=== PATIENT | male | born 1975 | race American Indian/Alaskan Native ===

== ENCOUNTER 2018-11-30 08:09 | Emergency (ER) | payer BC ==
[2018-11-30 08:50] VITALS: BP 186/108
--- NOTE | 2018-11-30 10:02 | Emergency Department Report ---
ED Lower Extremity HPI - General Chief Complaint: Extremity Problem,Nontraumatic Stated Complaint: L LEG PAIN Time Seen by Provider: 11/30/18 09:47 Source: patient Mode of arrival: Ambulatory Limitations: No Limitations - History of Present Illness Initial Comments: Mr. Rogers is a 43-year-old male with history of diabetes who presents with pain at the left posterior knee radiating to the left calf. Gradual onset 1 week ago. No known injury. Pain is constant. Dull. Has not noticed any swelling. Denies chest pain. Denies shortness of breath. No previous history of leg clot. However he does have varicose veins. MD Complaint: other (left posterior knee, left posterior calf pain) -: Gradual, week(s) (1) Injury: Leg: Left, Knee: Left Type of Injury: other (none) Severity: mild Improves With: nothing Worsens With: nothing - Related Data Allergies Allergy/AdvReac Type Severity Reaction Status Date / Time No Known Allergies Allergy Unverified 11/30/18 08:13 ED Review of Systems ROS: Stated complaint: L LEG PAIN Other details as noted in HPI Comment: All other systems reviewed and negative Constitutional: denies: fever, malaise Respiratory: denies: cough Cardiovascular: denies: chest pain ED Past Medical Hx - Past Medical History Previous Medical History?: Yes Hx Diabetes: Yes - Surgical History Past Surgical History?: No - Social History Smoking Status: Never Smoker Substance Use Type: None ED Physical Exam - General Limitations: No Limitations General appearance: alert, in no apparent distress - Head Head exam: Present: atraumatic, normocephalic - Eye Eye exam: Present: normal appearance - ENT ENT exam: Present: mucous membranes moist - Neck Neck exam: Present: normal inspection, full ROM. Absent: tenderness, meningi smus - Respiratory Respiratory exam: Present: normal lung sounds bilaterally. Absent: respiratory distress, wheezes, rales, rhonchi - Cardiovascular Cardiovascular Exam: Present: regular rate, normal rhythm, normal heart sounds. Absent: systolic murmur, diastolic murmur, rubs, gallop - GI/Abdominal GI/Abdominal exam: Present: soft, normal bowel sounds. Absent: distended, tenderness, guarding, rebound - Rectal Rectal exam: Present: deferred - Extremities Exam Extremities exam: Present: other (several varicose veins, no notable edema, obese habitus, 2+ DP pulses, left leg slightly larger than right leg) - Neurological Exam Neurological exam: Present: alert, oriented X3 - Psychiatric Psychiatric exam: Present: normal affect, normal mood - Skin Skin exam: Present: warm, dry, intact, normal color. Absent: rash ED Course Vital Signs 11/30/18 08:47 Temperature 97.6 F Pulse Rate 88 Respiratory 20 Rate Blood Pressure 186/108 O2 Sat by Pulse 100 Oximetry ED Lower Extremity MDM - Medical Decision Making Mr. Nathan presents with leg pain. Duplex ultrasound negative for DVT positive for superficial phlebitis. Recommended heat therapy and compression stockings. Critical care attestation.: If time is entered above; I have spent that time in minutes in the direct care of this critically ill patient, excluding procedure time. ED Disposition Clinical Impression: Superficial phlebitis of left leg, Elevated blood pressure reading Disposition: DC-01 TO HOME OR SELFCARE Is pt being admited?: No Does the pt Need Aspirin: No Condition: Stable Instructions: Superficial Thrombophlebitis (ED) Additional Instructions: Please have your blood pressure checked by your physician within one week. Blood pressure today is 186/108 Referrals: JACOB ARGUETA [Other] - 3-5 Days Forms: Work/School Release Form(ED)
--- NOTE | 2018-11-30 13:11 | Vascular Lab Report ---
PROCEDURE: VL VENOUS DUPLEX LE LT TECHNIQUE: Grayscale and color and spectral doppler ultrasound imaging of the left lower extremity v enous system was performed. HISTORY: left leg pain COMPARISONS: None. FINDINGS: No evidence of DVT is seen in the left lower extremity. There is thrombosis of a superficial varicose vein within the left mid to distal posterior thigh extending just inferior to the knee. Normal triph asic arterial waveforms are seen within the left distal posterior tibial artery. Incidentally the rig ht common femoral vein is patent. IMPRESSION: 1. Negative for left lower extremity DVT. 2. Thrombosis of a superficial venous varix in the left mid to distal thigh extending just below the knee. This document is electronically signed by Kelsea Swann., November 30 2018 01:09:31 PM ET
== END 2018-11-30 13:25 | disposition home or self-care (01) ==
LOC: ED 08:09
DX: I80.02 Phlebitis and thrombophlebitis of superficial vessels of left lower extremity (principal); R03.0 Elevated blood-pressure reading, without diagnosis of hypertension; E11.9 Type 2 diabetes mellitus without complications

== ENCOUNTER 2020-08-03 08:00 | Emergency (ER) | payer OTHER, BC ==
[2020-08-03 11:29] VITALS: BP 183/89
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
== END 2020-08-03 11:41 | disposition home or self-care (01) ==
LOC: ED 08:00
DX: S16.1XXA Strain of muscle, fascia and tendon at neck level, initial encounter (principal); S46.912A Strain of unspecified muscle, fascia and tendon at shoulder and upper arm level, left arm, initial encounter; I10 Essential (primary) hypertension; E11.9 Type 2 diabetes mellitus without complications; V89.2XXA Person injured in unspecified motor-vehicle accident, traffic, initial encounter; Y93.89 Activity, other specified; Y92.410 Unspecified street and highway as the place of occurrence of the external cause; Y99.8 Other external cause status
CPT/HCPCS: 99283